=== PATIENT | female | born 2000 | race Two or more races ===

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

== ENCOUNTER 2020-12-11 19:13 | Emergency (ER) | payer MEDICAID, OTHER ==
[~2020-12-11] VITALS: Ht 154.9 cm; Wt 54.5 kg
[2020-12-11 19:41] VITALS: BP 120/84
== END 2020-12-11 20:10 | disposition left against medical advice (07) ==
LOC: EMS 19:13
DX: R10.9 Unspecified abdominal pain (principal); Z53.21 Procedure and treatment not carried out due to patient leaving prior to being seen by health care provider